=== PATIENT | male | born 1985 | race Caucasian/White ===

== ENCOUNTER 2021-01-26 13:32 | Inpatient (IN) ==
[~2021-01-26 13:32] MED LIST: cloNIDine TTS 2 1 PATCH PATCH TD SCH
[2021-01-26] MEDS ORDERED: 0.9 % SODIUM CHLORIDE 1,000 ML IV ONE (13:49)
[2021-01-26 14:29] LABS: Basophils # (Auto) 0.07 K/mcL (0.00-0.20); Basophils % (Auto) 0.9 % (0.0-2.0); Eosinophils # (Auto) 0.06 K/mcL (0.00-0.70); Eosinophils % (Auto) 0.8 % (0.0-7.0); Hematocrit 45.2 % (41.0-55.0); Hemoglobin 15.5 g/dL (13.5-16.5); Lymphocytes # (Auto) 1.69 K/mcL (1.50-4.80); Lymphocytes % (Auto) 22.1 % (15.0-49.0); Mean Cell Volume 100.9 fL (80.0-100.0); Mean Corpuscular HGB Conc 34.3 g/dL (31.0-36.0); Mean Platelet Volume 9.9 fL (7.4-10.4); Monocytes # (Auto) 0.66 K/mcL (0.10-0.90); Monocytes % (Auto) 8.6 % (1.0-12.0); Neutrophils % (Auto) 67.6 % (38.0-78.0); Platelet Count 154 K/mcL (140-440); RBC 4.48 M/mcL (4.50-5.90); Red Cell Distribution Width 11.9 % (11.5-14.5); WBC 7.7 K/mcL (4.5-11.0)
[2021-01-26] MEDS ORDERED: ONDANSETRON 4 MG/2 ML VIAL IV ONE (14:40)
[2021-01-26 14:49] LABS: ALT/SGPT 117 U/L (<40); AST/SGOT 117 U/L (<40); Albumin 4.8 gm/dL (3.2-5.2); Albumin/Globulin Ratio 1.3 (1.0-2.3); Alkaline Phosphatase 70 U/L (39-117); Bilirubin,Total 0.7 mg/dL (0.1-1.0); Blood Urea Nitrogen 10 mg/dL (6-20); Calcium 10.3 mg/dL (8.6-10.4); Carbon Dioxide 22 mmol/L (22-30); Chloride 98 mmol/L (96-108); Globulin 3.6 gm/dL (2.2-3.7); Glomerular Filtration Rate 110; Glucose 162 mg/dL (70-105)
[2021-01-26] MEDS ORDERED: LORazepam 2 MG/ML VIAL IV ONE (15:12)
[2021-01-26] MEDS ORDERED: FOLIC ACID 1 MG TABLET PO ONE (15:46)
[2021-01-26] MEDS ORDERED: THIAMINE 100 MG in 0.9 % SODIUM CHLORIDE 50 ML IV ONE (15:46)
--- NOTE | 2021-01-26 15:46 | Emergency Department Note ---
Seizure HPI General Chief Complaint: Seizure Stated Complaint: seizure Time Seen by Provider: 01/26/21 13:42 Source: patient and EMS Mode of arrival: ambulatory Limitations: no limitations History of Present Illness HPI Narrative: Narrative: 35 yo M w/ h/o alcohol abuse, previous seizure, p/w seizure like activity. Per fiance at the bedside, he was at home, and had been shaky all morning. He suddenly cried out and had a one minute episode of B/LUE rigidity/fine tremor, w/ eyes rolled back in his head. This was followed by 2-3 minutes of unresponsiveness. He was then transported here for ongoing evaluation. He currently denies BAUMAN, numbness, weakness, neck pain, F/C. He initially reported drinking only a small amount of alcohol. However, the RN d/w him and his fiance and learned that he is drinking 1/2 gallon of hard alcohol daily, and his last drink was two days ago. He was seen here after his first seizure, and was referred to neurology, but has not yet seen them. Related Data Home Medications Medication Instructions Recorded Confirmed No Known Home Meds 01/26/21 01/26/21 Allergies Allergy/AdvReac Type Severity Reaction Status Date / Time No Known Drug Allergies Allergy Verified 01/26/21 16:21 Review of Systems ROS ROS Narrative: Narrative: All systems ED: reviewed and negative except as stated. [facility] Narrative Patient History Narrative: Narrative: Medical/Surgical/Family History All Active Problems (Updated 01/26/21 @ 15:46 by Nelson Borjas MD) Clavicle fracture (Acute) Observed seizure-like activity (Acute) New onset seizure (Acute) Adverse drug reaction (Acute) Seizure (Acute) Alcohol withdrawal seizure (Acute) Paronychia of finger of right hand (Acute) Social History Smoking Status: Current every day smoker Alcohol Intake Frequency: holiday/special occasion only Substance Use: does not use Exam Narrative Narrative: Narrative: General Limitations: no limitations General appearance: Present alert and in no apparent distress Head Head: Present atraumatic and normocephalic Eye Eye: Present PERRL and EOMI ENT ENT: Present normal oropharynx, mucous membranes moist and other (no tongue laceration) Neck Neck: Present full ROM; Absent tenderness Chest Chest: Present normal inspection and symmetric chest wall rise Respiratory Respiratory: Present normal lung sounds bilaterally Cardiovascular Cardiovascular: Present regular rate, normal rhythm, +S1 and +S2 Adbominal Abdominal: Present soft and normal bowel sounds; Absent distention and tenderness Extremities Extremities: Absent pedal edema Neurological Neurological: Present alert, oriented X3 and other (fine constant B/LUE tremor. No aphasia, dysarthria, facial droop, tongue deviation, sensory/motor deficit. Intact finger-nose, visual sprague. NIHSS 0) Psychiatric Psychiatric: Present anxious Skin Skin: Present warm (WNL) and dry Course Vital Signs Vital signs: Vital Signs Temperature 98.2 F 01/26/21 13:33 Pulse Rate 115 H 01/26/21 13:33 Respiratory Rate 20 01/26/21 13:33 Blood Pressure 154/110 01/26/21 13:33 Pulse Oximetry (%) 93 01/26/21 13:33 Temperature 98.2 F 01/26/21 13:33 Pulse Rate 68 01/26/21 17:01 Respiratory Rate 10 L 01/26/21 17:16 Blood Pressure 138/95 01/26/21 17:16 Pulse Oximetry (%) 93 01/26/21 17:01 [facility] MDM Narrative Medical decision making narrative: Narrative: 35 yo M w/ h/o previous seizure and alcoholism p/w seizure activity at home. DDX - CVA/SAH, seizure, metabolic/electrolyte d/o, alcohol withdrawal Pt presented clinically stable, in NAD but w/ tremors and anxiety. He initially denied any significant ETOH intake, and I began a basic W/U for recurrent seizure w/ labs. I did not see evidence of any traumatic injury, and imaging was not indicated. With NFD on exam and no BAUMAN or other neuro Sx, CT was not indicated. CMP showed no serious metabolic/electrolyte d/o. In the course of working him up, he disclosed to the RN that his ETOH intake was much more than he admitted to me. Once the fiance arrived, he then admitted to drinking quite a substantial amount of ETOH daily. I then Tx'd w/ 2mg IV ativan w/ good effect and started him on CIWA along w/ some thiamine and folate. With ETOH W/D seizures the likely source of todays presentation, admission was clearly required and he was accepted by the hospitalist. Lab Data Result diagrams: 01/26/21 13:38 01/26/21 13:38 Labs: Lab Results 01/26/21 01/26/21 01/26/21 Range/Units 13:38 13:38 17:20 WBC 7.7 (4.5-11.0) K/mcL RBC 4.48 L (4.50-5.90) M/mcL Hgb 15.5 (13.5-16.5) g/dL Hct 45.2 (41.0-55.0) % MCV 100.9 H (80.0-100.0) fL MCH 34.6 H (26.0-34.0) pg MCHC 34.3 (31.0-36.0) g/dL RDW 11.9 (11.5-14.5) % Plt Count 154 (140-440) K/mcL MPV 9.9 (7.4-10.4) fL Neut % (Auto) 67.6 (38.0-78.0) % Lymph % (Auto) 22.1 (15.0-49.0) % [place] % (Auto) 8.6 (1.0-12.0) % Eos % (Auto) 0.8 (0.0-7.0) % Baso % (Auto) 0.9 (0.0-2.0) % Lymph # (Auto) 1.69 (1.50-4.80) K/mcL [place] # (Auto) 0.66 (0.10-0.90) K/mcL Eos # (Auto) 0.06 (0.00-0.70) K/mcL Baso # (Auto) 0.07 (0.00-0.20) K/mcL Absolute Neutrophils 5.17 (1.80-8.00) K/mcL Sodium 138 (133-145) mmol/L Potassium 4.2 (3.3-5.1) mmol/L Chloride 98 (96-108) mmol/L Carbon Dioxide 22 (22-30) mmol/L Anion Gap 18.0 H (8.0-16.0) BUN 10 (6-20) mg/dL Creatinine 0.9 (0.7-1.2) mg/dL GFR Calculation 110 Glucose 162 H (70-105) mg/dL Calcium 10.3 (8.6-10.4) mg/dL Total Bilirubin 0.7 (0.1-1.0) mg/dL AST 117 H (<40) U/L ALT 117 H (<40) U/L Alkaline Phosphatase 70 (39-117) U/L Total Protein 8.4 (5.9-8.4) gm/dL Albumin 4.8 (3.2-5.2) gm/dL Globulin 3.6 (2.2-3.7) gm/dL Albumin/Globulin Ratio 1.3 (1.0-2.3) Urine Color Yellow Urine Appearance Clear (Clear) Urine pH 9.0 (5.0-9.0) Ur Specific [place] 1.014 (1.000-1.035) Urine Protein 30 A (Negative) mg/dL Urine Glucose (UA) Negative (Negative) mg/dL Urine Ketones Negative (Negative) mg/dL Urine Occult Blood Negative (Negative) mg/dL Urine Nitrate Negative (Negative) Urine Bilirubin Negative (Negative) mg/dL Urine Urobilinogen Negative mg/dL Ur Leukocyte Esterase Negative (Negative) /ug Urine RBC < 1 (0-3) /hpf Urine WBC < 1 (0-4) /hpf Ur Squamous Epith Cells 0 (0-4) /hpf Urine Bacteria Few A (0) /hpf Hyaline Casts 4 H (0-2) /lph Urine Mucus Few A (None) /hpf Ur Culture Indicated? Yes Discharge Plan Patient/Caregiver Discharge Instructions Pt seen by FORM SETTER SUPERVISOR/PA only: No Clinical Impression: Seizure, Alcohol withdrawal seizure Patient Disposition: Xfer As Inpt ([facility]) Condition: Serious Discharge Date/Time: 01/26/21 18:30
--- NOTE | 2021-01-26 15:55 | Internal Med History&Physical ---
HPI History of Present Illness Patient information: Note initiated : 01/26/21 at 3:55 pm Service Date, if different from initiated Date: [] Patient: Pio Garrison a 35 y/o M admitted on for seizure. Chief Complaint: [] History of present illness: Mr. Garrison is a 35 year old M with no significant prior medical history except for a seizure a month ago. Patient presented to the ER following a brief seizure activity at home. During evaluation patient was noted to be consuming one fourth of half gallon of hard liquor daily. He has not had a drink in the last 48 hours. He intends to quit. He works in the [place] department at [employer]. He denies head trauma/fever, chills, unilateral weakness or vision changes. Denies yellow discoloration of skin/bloody emesis or bloody stool. Initial work-up was essentially unremarkable except for elevated LFTs. Patient was started on benzodiazepine. No further seizure episodes during the ER visit Hospitalist service was consulted for management of alcohol withdrawals At the time of my evaluation no family members are present. Most of the history is obtained from review of medical records/ER physician and patient self. He endorses to history as above. He denies fall/head injury/recent changes in medications. He expresses desire to quit alcohol Review of systems 10 point review system was performed and is negative except for ones discussed above PFSH PFSH All Active Problems (Updated 01/26/21 @ 15:46 by Nelson Borjas MD) Clavicle fracture (Acute) Observed seizure-like activity (Acute) New onset seizure (Acute) Adverse drug reaction (Acute) Seizure (Acute) Alcohol withdrawal seizure (Acute) Paronychia of finger of right hand (Acute) Social History (Updated 07/30/19 @ 05:49 by Jazmine Santamaria DO) alcohol intake frequency: holiday/special occasion only substance use type: does not use MEDS/ALLERGIES Home Medications and Allergies Home Medications Medication Instructions Recorded Confirmed Type No Known Home Meds 01/26/21 01/26/21 History Allergies Allergy/AdvReac Type Severity Reaction Status Date / Time No Known Drug Allergies Allergy Verified 01/26/21 16:21 EXAM Constitutional Vitals: Temp Pulse Resp BP Pulse Ox 98.2 F 66 13 154/106 94 01/26/21 13:33 01/26/21 15:16 01/26/21 15:16 01/26/21 15:16 01/26/21 15:16 Head normocephalic, nondistressed Oral cavity moist No ear or nose discharge Eye no subconjunctival pallor, movement symmetrical S1-S2 tachycardia Nonlabored breathing Nondistended nontender abdomen Lower extremity no cyanosis clubbing or joint swelling Skin no suspicious lesion Psych anxious and tremulous Neuro normal higher function on limited neuro exam DATA Data Completed and Pending Labs: Labs from last 24 hours 01/26/21 01/26/21 13:38 13:38 WBC 7.7 RBC 4.48 L Hgb 15.5 Hct 45.2 MCV 100.9 H MCH 34.6 H MCHC 34.3 RDW 11.9 Plt Count 154 MPV 9.9 Neut % (Auto) 67.6 Lymph % (Auto) 22.1 [place] % (Auto) 8.6 Eos % (Auto) 0.8 Baso % (Auto) 0.9 Lymph # (Auto) 1.69 [place] # (Auto) 0.66 Eos # (Auto) 0.06 Baso # (Auto) 0.07 Absolute Neutrophils 5.17 Sodium 138 Potassium 4.2 Chloride 98 Carbon Dioxide 22 Anion Gap 18.0 H BUN 10 Creatinine 0.9 GFR Calculation 110 Glucose 162 H Calcium 10.3 Total Bilirubin 0.7 AST 117 H ALT 117 H Alkaline Phosphatase 70 Total Protein 8.4 Albumin 4.8 Globulin 3.6 Albumin/Globulin Ratio 1.3 A/P Narrative A/P Narrative: * Alcohol withdrawal seizures, continue management per withdrawal protocol. Start gabapentin/clonidine benzodiazepine sparing protocol/crystalloid/antiemetics/electrolyte management and close monitoring for seizures in monitored unit. * severe alcohol use disorder, counseling/cessation measures * Prophylaxis early ambulation/Heparin Plan * Benzodiazepine sparing alcohol withdrawal protocol * Continue seizure watch * nutrition support/crystalloids electrolytes management Time Spent With Patient Time: Total time spent is greater than 50% in coordination of care (as documented) at patient's floor/unit and/or counseling patient:
[2021-01-26] MEDS ORDERED: THIAMINE 100 MG/ML VIAL ONE (15:58)
[2021-01-26 18:29] LABS: Appearance,Urine CLEAR (Clear); Bacteria,Urine FEW /hpf (0); Bilirubin,Urine Negative (Negative); Color,Urine YELLOW; Culture Indicated,Urine Yes; Glucose,Urine (UA) Negative (Negative); Ketones,Urine Negative (Negative); Leukocyte Esterase,Urine Negative /ug (Negative); Mucus,Urine FEW /hpf; Nitrate,Urine Negative (Negative); Protein,Urine 30 mg/dL (Negative); Specific Gravity,Urine 1.014 (1.000-1.035); Urine Blood Negative (Negative); Urine Hyaline Cast 4 /lph (0-2); Urine RBC < 1 /hpf (0-3); Urine Squamous Epithelial Cell 0 /hpf (0-4); Urine WBC < 1 /hpf (0-4); Urobilinogen,Urine Negative
[2021-01-26] MEDS ORDERED: POTASSIUM CHLORIDE 40 MEQ in DEXTROSE 5% IN WATER 500 ML IV PRN (18:38)
[2021-01-26] MEDS ORDERED: ACETAMINOPHEN 650 MG/65 ML BAG IV PRN (18:38)
[2021-01-26] MEDS ORDERED: ONDANSETRON 4 MG ODT TABLET SL PRN (18:38)
[2021-01-26] MEDS ORDERED: ACETAMINOPHEN 325 MG TABLET PO PRN (18:38)
[2021-01-26] MEDS ORDERED: MAGNESIUM SULFATE 2 GM/50 ML BAG IV PRN (18:38)
[2021-01-26] MEDS ORDERED: BISACODYL 10 MG SUPP.RECT PR PRN (18:38)
[2021-01-26] MEDS ORDERED: MELATONIN 3 MG TABLET PO PRN (18:38)
[2021-01-26] MEDS ORDERED: POTASSIUM CHLORIDE 20 MEQ PACKET PO PRN (18:38)
[2021-01-26] MEDS: 0.9 % SODIUM CHLORIDE 10 ML SYRINGE IV SCH ×2 (18:50→22:38)
[2021-01-26] MEDS: LACTATED RINGERS 1,000 ML IV SCH (18:51)
[2021-01-26] MEDS ORDERED: GABAPENTIN 400 MG CAPSULE PO ONE (19:15)
[2021-01-26] MEDS: ONDANSETRON 4 MG/2 ML VIAL IV PRN (19:33)
[2021-01-26] MEDS: cloNIDine HCL 0.1 MG TABLET PO SCH (19:37)
[2021-01-26] MEDS: HEPARIN 5,000 UNIT/ML VIAL SQ SCH (19:46)
[2021-01-26] MEDS: CYANOCOBALAMIN (VITAMIN B-12) 500 MCG TABLET PO SCH (19:46)
[2021-01-26] MEDS: DOCUSATE SODIUM 100 MG CAPSULE PO SCH (19:47)
[2021-01-26] MEDS ORDERED: SENNOSIDES/DOCUSATE SODIUM 1 TAB TABLET PO SCH (21:00)
[2021-01-27] MEDS: cloNIDine HCL 0.1 MG TABLET PO SCH ×2 (04:30→13:13)
[2021-01-27] MEDS: ONDANSETRON 4 MG/2 ML VIAL IV PRN (04:33)
[2021-01-27] MEDS ORDERED: GABAPENTIN 400 MG CAPSULE PO SCH ×2 (06:00→14:00)
[2021-01-27] MEDS: 0.9 % SODIUM CHLORIDE 10 ML SYRINGE IV SCH ×3 (06:01→21:07)
[2021-01-27 07:23] LABS: Basophils # (Auto) 0.05 K/mcL (0.00-0.20); Basophils % (Auto) 1.2 % (0.0-2.0); Eosinophils # (Auto) 0.11 K/mcL (0.00-0.70); Eosinophils % (Auto) 2.6 % (0.0-7.0); Hematocrit 41.8 % (41.0-55.0); Hemoglobin 13.7 g/dL (13.5-16.5); Lymphocytes # (Auto) 1.61 K/mcL (1.50-4.80); Lymphocytes % (Auto) 37.4 % (15.0-49.0); Mean Cell Volume 101.2 fL (80.0-100.0); Mean Corpuscular HGB Conc 32.8 g/dL (31.0-36.0); Mean Platelet Volume 10.3 fL (7.4-10.4); Monocytes # (Auto) 0.41 K/mcL (0.10-0.90); Monocytes % (Auto) 9.5 % (1.0-12.0); Neutrophils % (Auto) 49.3 % (38.0-78.0); Platelet Count 129 K/mcL (140-440); RBC 4.13 M/mcL (4.50-5.90); Red Cell Distribution Width 11.9 % (11.5-14.5); WBC 4.3 K/mcL (4.5-11.0)
[2021-01-27 08:06] LABS: ALT/SGPT 91 U/L (<40); AST/SGOT 83 U/L (<40); Albumin 4.2 gm/dL (3.2-5.2); Albumin/Globulin Ratio 1.4 (1.0-2.3); Alkaline Phosphatase 60 U/L (39-117); Bilirubin,Direct 0.2 mg/dL (<0.3); Bilirubin,Total 0.9 mg/dL (0.1-1.0); Blood Urea Nitrogen 10 mg/dL (6-20); Carbon Dioxide 25 mmol/L (22-30); Chloride 98 mmol/L (96-108); Glomerular Filtration Rate 122; Glucose 80 mg/dL (70-105); Lactate Dehydrogenase 193 U/L (135-225); Phosphorous 3.2 mg/dL (2.5-4.5); Triglycerides 159 mg/dL (<150); Uric Acid 5.7 mg/dL (2.5-8.0)
[2021-01-27] MEDS: DOCUSATE SODIUM 100 MG CAPSULE PO SCH ×2 (08:31→21:06)
[2021-01-27] MEDS: LACTATED RINGERS 1,000 ML IV SCH (08:31)
[2021-01-27] MEDS: HEPARIN 5,000 UNIT/ML VIAL SQ SCH (08:32)
[2021-01-27] MEDS: CYANOCOBALAMIN (VITAMIN B-12) 500 MCG TABLET PO SCH ×2 (08:32→21:07)
[2021-01-27] MEDS ORDERED: MULTIVIT,THER IRON,CA,FA & MIN 1 TABLET PO SCH (09:00)
--- NOTE | 2021-01-27 10:22 | Internal Med Progress Note ---
SUBJECTIVE Subjective Patient information: Note initiated : 01/27/21 at 10:21 am Service Date, if different from initiated Date: [] Patient: Pio Garrison a 35 y/o M admitted on 01/26/21 for seizure. Chief Complaint: [] Interval history: Mr. Garrison is a 35 year old M with no significant prior medical history except for a seizure a month ago. Patient presented to the ER following a brief seizure activity at home. During evaluation patient was noted to be consuming one fourth of half gallon of hard liquor daily. He has not had a drink in the last 48 hours. He intends to quit. He works in the [employer] department at [employer]. He denies head trauma/fever, chills, unilateral weakness or vision changes. Denies yellow discoloration of skin/bloody emesis or bloody stool. Initial work-up was essentially unremarkable except for elevated LFTs. Patient was started on benzodiazepine. No further seizure episodes during the ER visit Hospitalist service was consulted for management of alcohol withdrawals At the time of my evaluation no family members are present. Most of the history is obtained from review of medical records/ER physician and patient self. He endorses to history as above. He denies fall/head injury/recent changes in medications. He expresses desire to quit alcohol 01/27-patient doing a lot better. No overnight seizure activity. No significant psychomotor agitation/diaphoresis. CIWA scores less than eight. Tolerating medications per benzodiazepine sparing protocol. Stable labs electrolytes. Tolerating diet. Ambulating. Transfer to medical floor. MRI brain today. Anticipate discharge in 48 to 72 hours once clinically stable. Taper gabapentin dose. Constitutional Vitals: Vital Signs Temp Pulse Resp BP Pulse Ox 97.7 F 46 L 16 119/74 97 01/27/21 08:00 01/27/21 10:08 01/27/21 10:00 01/27/21 10:00 01/27/21 10:08 Period Temp Pulse Resp BP Sys/Schumacher Pulse Ox Last 24 Hr 97.7 F-98.8 F 46-115 10 115-155/74-115 90-100 Intake and Output 01/26/21 01/27/21 01/27/21 21:59 05:59 13:59 Intake Total 1265 753 2289 Output Total 125 150 0 Balance 3695 074 3023 Weight 74.208 kg Alert oriented Nonlabored breathing Minimal anxiety and tremor No telemetry events Intake & Output: Intake & Output 01/26/21 01/27/21 01/27/21 21:59 05:59 13:59 Intake Total 1072 504 7800 Output Total 125 150 0 Balance 7804 658 3919 Weight 74.208 kg Intake: IV 1051 1070 Sodium Chloride 0.9% 1,000 ml @ 1000 Wide Open IV BOLUS ONE Rx#: [id number] Lactated Ringers 1,000 ml @ 75 1070 mls/hr IV .[id number] [facility] Rx#: [id number] Vitamin B1 100 mg In Sodium 51 Chloride 0.9% 50 ml @ 50 mls/hr IV ONCE ONE Rx#:[id number] Oral 480 480 360 Output: Void Amount 125 150 0 Other: Meal Snack Percent of Meal Consumed 100% Feeding Ability Independent Urine Appearance Clear Clear Urine Color Dark Susy Dark Susy Urine Odor Normal Normal OBJ DATA Labs CBC & Chem 7: 01/27/21 04:35 01/27/21 04:35 Labs: Abnormal Lab Results 01/27/21 01/27/21 01/26/21 04:35 04:35 17:20 WBC 4.3 L RBC 4.13 L MCV 101.2 H MCH Plt Count 129 L Anion Gap Glucose GGT 399 H AST 83 H ALT 91 H Triglycerides 159 H Urine Protein 30 A Urine Bacteria Few A Hyaline Casts 4 H Urine Mucus Few A 01/26/21 01/26/21 13:38 13:38 WBC RBC 4.48 L MCV 100.9 H MCH 34.6 H Plt Count Anion Gap 18.0 H Glucose 162 H GGT AST 117 H ALT 117 H Triglycerides Urine Protein Urine Bacteria Hyaline Casts Urine Mucus Meds: Medications Acetaminophen (Acetaminophen 325 Mg Tablet) 650 mg PO Q4-6HP PRN; Protocol PRN Reason: Per Pain Protocol/Fever > 101 Bisacodyl (Bisacodyl 10 Mg Supp.Rect) 10 mg NV Q2-3DAYS PRN PRN Reason: Constipation Clonidine HCl (Clonidine Tts 2 1 Patch Patch) 1 patch TD Tu@1000 [facility] Last Admin: 01/26/21 19:47 Dose: 1 patch Documented by: Clonidine HCl (Clonidine Hcl 0.1 Mg Tablet) 0.2 mg PO Q8H [facility] Stop: 01/27/21 12:01 Last Admin: 01/27/21 04:30 Dose: 0.2 mg Documented by: Cyanocobalamin (Cyanocobalamin (Vitamin B-12) 500 Mcg Tablet) 1,000 mcg PO BID [facility] Stop: 01/31/21 09:01 Last Admin: 01/27/21 08:32 Dose: 1,000 mcg Documented by: Docusate Sodium (Docusate Sodium 100 Mg Capsule) 100 mg PO BID [facility] Last Admin: 01/27/21 08:31 Dose: Not Given Documented by: Gabapentin (Gabapentin 400 Mg Capsule) 800 mg PO Q8 [facility] Stop: 01/27/21 22:01 Last Admin: 01/27/21 06:05 Dose: 800 mg Documented by: Potassium Chloride 40 meq/ (Dextrose) 520 mls @ 130 mls/hr IV UD PRN PRN Reason: K+ = or < 3.5 Acetaminophen (Ofirmev) 650 mg in 65 mls @ 130 mls/hr IV Q6HP PRN; Protocol PRN Reason: Per Pain Protocol/Fever > 101 Magnesium Sulfate (Magnesium Sulfate) 2 gm in 50 mls @ 50 mls/hr IV UD PRN PRN Reason: MG = or < 1.7 Iron Carb/Multivit/Vici/Folic Acid (Multivit,Ther Iron,Ca,Fa & Min 1 Tablet) 1 tab PO DAILY [facility] Last Admin: 01/27/21 08:32 Dose: 1 tab Documented by: Melatonin (Melatonin 3 Mg Tablet) 3 mg PO HSP PRN PRN Reason: Insomnia Ondansetron HCl (Ondansetron 4 Mg Odt Tablet) 4 mg SL Q4-6HP PRN; Protocol PRN Reason: Nausea And Vomiting Ondansetron HCl (Ondansetron 4 Mg/2 Ml Vial) 4 mg IV Q4-6HP PRN; Protocol PRN Reason: Nausea And Vomiting Last Admin: 01/27/21 04:33 Dose: 4 mg Documented by: Potassium Chloride (Potassium Chloride 20 Meq Packet) 40 meq PO DAILYP PRN PRN Reason: K+ < 3.5 Senna/Docusate Sodium (Sennosides/Docusate Sodium 1 Tab Tablet) 1 tab PO HS [facility] Last Admin: 01/26/21 19:47 Dose: Not Given Documented by: Sodium Chloride (0.9 % Sodium Chloride 10 Ml Syringe) 10 ml IV Q8 [facility] Last Admin: 01/27/21 06:01 Dose: Not Given Documented by: A/P Narrative A/P Narrative: * Alcohol withdrawal seizures, clinically improved on gabapentin. No evidence of DT or psychomotor agitation. Ongoing withdrawal symptom management on gabapentin/clonidine. * severe alcohol use disorder, counseling/cessation measures. * Prophylaxis early ambulation Plan * Continue benzodiazepine sparing alcohol withdrawal protocol * Transfer to medical floor * nutrition support/crystalloids electrolytes management Time Spent With Patient Time: Total time spent is greater than 50% in coordination of care (as documented) at patient's floor/unit and/or counseling patient: QUALITY Stroke Symptom Onset Unknown: No VTE Deep Vein Thrombosis/Pulmonary Embolism Present on Admission: No
[2021-01-27] MEDS ORDERED: BISACODYL 10 MG SUPP.RECT PR PRN (10:54)
[2021-01-27] MEDS ORDERED: MAGNESIUM SULFATE 2 GM/50 ML BAG IV PRN (10:54)
[2021-01-27] MEDS ORDERED: POTASSIUM CHLORIDE 20 MEQ PACKET PO PRN (10:54)
[2021-01-27] MEDS ORDERED: MELATONIN 3 MG TABLET PO PRN (10:54)
[2021-01-27] MEDS ORDERED: ACETAMINOPHEN 650 MG/65 ML BAG IV PRN (10:54)
[2021-01-27] MEDS ORDERED: ACETAMINOPHEN 325 MG TABLET PO PRN (10:54)
[2021-01-27] MEDS ORDERED: ONDANSETRON 4 MG/2 ML VIAL IV PRN (10:54)
[2021-01-27] MEDS ORDERED: ONDANSETRON 4 MG ODT TABLET SL PRN (10:54)
[2021-01-27] MEDS ORDERED: POTASSIUM CHLORIDE 40 MEQ in DEXTROSE 5% IN WATER 500 ML IV PRN (10:54)
[2021-01-27] MEDS ORDERED: cloNIDine HCL 0.1 MG TABLET PO SCH (12:00)
[2021-01-27] MEDS ORDERED: GADOBENATE DIMEGLUMINE 15 ML/VIAL IV ONE (14:23)
[2021-01-27] MEDS: GABAPENTIN 300 MG CAPSULE PO SCH ×2 (14:52→21:07)
--- NOTE | 2021-01-27 18:25 | Magnetic Resonance Report ---
CLINICAL INFORMATION: Follow-up alcohol withdrawal seizures. COMPARISON: None. TECHNIQUE: Sagittal T1 FLAIR, axial diffusion ADC, T1 FLAIR, T2 FLAIR propeller, T2 propeller gradient, T1 post Magnevist and coronal T1 FLAIR post Magnevist images were acquired. FINDINGS: The ventricles, sulci, fissures and cisterns are normal and symmetric in size and configuration-no extra-axial fluid collection or mass appreciated. A 4 mm high signal lesion in the deep left frontal white matter represents a focus of chronic ischemia. The remainder of the nguyen and white matter the cerebrum, brainstem and cerebellum show normal signal-no abnormal enhancement or restricted diffusion. Signal void in intracerebral arteries, extra-axial cranial nerves, pituitary orbits are all normal. IMPRESSION: 4 mm of chronic ischemia in the deep left frontal white matter. Exam is, otherwise, normal Interpreted and Authenticated by: Ford Mahan 01/27/21
[2021-01-27] MEDS ORDERED: SENNOSIDES/DOCUSATE SODIUM 1 TAB TABLET PO SCH (21:00)
[2021-01-28] MEDS: GABAPENTIN 300 MG CAPSULE PO SCH (05:12)
[2021-01-28] MEDS: 0.9 % SODIUM CHLORIDE 10 ML SYRINGE IV SCH (05:12)
[2021-01-28 06:45] LABS: Basophils # (Auto) 0.04 K/mcL (0.00-0.20); Basophils % (Auto) 0.7 % (0.0-2.0); Eosinophils # (Auto) 0.15 K/mcL (0.00-0.70); Eosinophils % (Auto) 2.4 % (0.0-7.0); Hematocrit 41.4 % (41.0-55.0); Hemoglobin 14.1 g/dL (13.5-16.5); Lymphocytes # (Auto) 1.92 K/mcL (1.50-4.80); Lymphocytes % (Auto) 31.3 % (15.0-49.0); Mean Cell Volume 100.5 fL (80.0-100.0); Mean Corpuscular HGB Conc 34.1 g/dL (31.0-36.0); Mean Platelet Volume 10.8 fL (7.4-10.4); Monocytes % (Auto) 6.5 % (1.0-12.0); Neutrophils % (Auto) 59.1 % (38.0-78.0); Platelet Count 118 K/mcL (140-440); RBC 4.12 M/mcL (4.50-5.90); Red Cell Distribution Width 11.6 % (11.5-14.5); WBC 6.1 K/mcL (4.5-11.0)
--- NOTE | 2021-01-28 06:48 | XRay Report ---
CLINICAL INFORMATION: Interval Change COMPARISON: 11/28/2020 FINDINGS: Heart size, mediastinum and pulmonary vessels are normal. The lungs are clear. No effusions. Right midclavicular fracture transfixed by plate and screws is now anatomic alignment. IMPRESSION: No acute cardiac pulmonary disease Interpreted and Authenticated by: Ford Mahan 01/28/21
[2021-01-28 07:01] LABS: ALT/SGPT 99 U/L (<40); AST/SGOT 79 U/L (<40); Albumin 4.4 gm/dL (3.2-5.2); Albumin/Globulin Ratio 1.5 (1.0-2.3); Alkaline Phosphatase 64 U/L (39-117); Bilirubin,Direct 0.3 mg/dL (<0.3); Bilirubin,Total 0.9 mg/dL (0.1-1.0); Blood Urea Nitrogen 10 mg/dL (6-20); Calcium 9.2 mg/dL (8.6-10.4); Carbon Dioxide 25 mmol/L (22-30); Chloride 99 mmol/L (96-108); Glomerular Filtration Rate 122; Glucose 90 mg/dL (70-105); Lactate Dehydrogenase 205 U/L (135-225); Phosphorous 3.3 mg/dL (2.5-4.5); Triglycerides 100 mg/dL (<150); Uric Acid 4.6 mg/dL (2.5-8.0)
[2021-01-28] MEDS: CYANOCOBALAMIN (VITAMIN B-12) 500 MCG TABLET PO SCH (07:57)
[2021-01-28] MEDS: DOCUSATE SODIUM 100 MG CAPSULE PO SCH (07:57)
[2021-01-28] MEDS ORDERED: MULTIVIT,THER IRON,CA,FA & MIN 1 TABLET PO SCH (09:00)
--- NOTE | 2021-01-28 09:53 | Discharge Summary ---
Discharge Provider Provider Patient information: Note initiated : 01/28/21 at 9:51 am Service Date, if different from initiated Date: [] Patient: Pio Garrison a 35 y/o M admitted on 01/26/21 for seizure. Chief Complaint: [] Discharge diagnosis * Alcohol withdrawal seizures, clinically improved on gabapentin. No evidence of DT or psychomotor agitation. MRI brain no evidence of epileptogenic focus/tumors. * severe alcohol use disorder, counseling/cessation measures. Continue gabapentin/clonidine for additional 4-5 days Brief hospital course Mr. Garrison is a 35 year old M with no significant prior medical history except for a seizure a month ago. Patient presented to the ER following a brief seizure activity at home. During evaluation patient was noted to be consuming one fourth of half gallon of hard liquor daily. He has not had a drink in the last 48 hours. He intends to quit. 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 He denies head trauma/fever, chills, unilateral weakness or vision changes. Denies yellow discoloration of skin/bloody emesis or bloody stool. Initial work-up was essentially unremarkable except for elevated LFTs. Patient was started on benzodiazepine. No further seizure episodes during the ER visit Hospitalist service was consulted for management of alcohol withdrawals At the time of my evaluation no family members are present. Most of the history is obtained from review of medical records/ER physician and patient self. He endorses to history as above. He denies fall/head injury/recent changes in medications. He expresses desire to quit alcohol 01/27-patient doing a lot better. No overnight seizure activity. No significant psychomotor agitation/diaphoresis. CIWA scores less than eight. Tolerating medications per benzodiazepine sparing protocol. Stable labs electrolytes. Tolerating diet. Ambulating. Transfer to medical floor. MRI brain today. Anticipate discharge in 48 to 72 hours once clinically stable. Taper gabapentin dose. 01/28-patient doing a lot better. Much improved agitation. CIWA score less than 5. Discharging on gabapentin 400 3 times daily with a tapering dose along with clonidine patch to continue for additional 5 days. Advised to refrain from alc ohol use. Return to ER if worsening fever chills. Follow-up with Dr. Benites as outpatient for alcohol rehab resources on labs Date of admission: 01/26/21 18:26 Discharge date: 01/28/21 Primary care physician: PCP No Consults: 01/26/21 Consult to Physician [CONS] Stat Comment: Consulting Provider: Shakir Peralta Reason For Exam: Physician to Consult Discharge Meds Discharge Medications Home Medications clonidine 1 patch TRANSDERMAL Tu@1000 7 Days #1 ea 01/28/21 [Rx Last Taken Unknown] gabapentin 300 mg PO Q8 #9 cap 01/28/21 [Rx Last Taken Unknown] COURSE Hospital Course Hospital course: . Discharge diagnosis: . Time Spent with Patient Time attestation: Total time spent providing and/or coordinating discharge services: EXAM Constitutional Vitals: Temp Pulse Resp BP Pulse Ox 96.4 F L 51 L 16 126/82 98 01/28/21 08:00 01/28/21 08:00 01/28/21 08:00 01/28/21 08:00 01/28/21 08:00 Discharge Data Data Completed and Pending Labs on day of discharge: Labs from last 24 hours 01/28/21 01/28/21 04:45 04:45 WBC 6.1 RBC 4.12 L Hgb 14.1 Hct 41.4 MCV 100.5 H MCH 34.2 H MCHC 34.1 RDW 11.6 Plt Count 118 L MPV 10.8 H Neut % (Auto) 59.1 Lymph % (Auto) 31.3 [place] % (Auto) 6.5 Eos % (Auto) 2.4 Baso % (Auto) 0.7 Lymph # (Auto) 1.92 [place] # (Auto) 0.40 Eos # (Auto) 0.15 Baso # (Auto) 0.04 Absolute Neutrophils 3.62 Sodium 134 Potassium 4.3 Chloride 99 Carbon Dioxide 25 Anion Gap 10.0 BUN 10 Creatinine 0.7 GFR Calculation 122 Glucose 90 Uric Acid 4.6 Calcium 9.2 Phosphorus 3.3 Magnesium 2.4 Total Bilirubin 0.9 Direct Bilirubin 0.3 H GGT 412 H AST 79 H ALT 99 H Alkaline Phosphatase 64 Lactate Dehydrogenase 205 Total Protein 7.4 Albumin 4.4 Globulin 3.0 Albumin/Globulin Ratio 1.5 Triglycerides 100 Preliminary micro results at discharge 01/26/21 17:20 Urine Culture - Preliminary Urine - Clean Void Mid-Stream Discharge Plan Patient/Caregiver Discharge Instructions Activity: increase activity as tolerated Diet: Regular Diet Instructions: Alcohol Withdrawal (DC) Prescriptions: New clonidine 0.1 mg/24 hr patch weekly 1 patch transdermal Tu@1000 7 Days Qty: 1 RF: 0 gabapentin 300 mg Capsule 300 mg PO Q8 Qty: 9 RF: 0 Follow Up Plan Follow up with: Amy Hallman DO [Physician] - (Call office on Monday to schedule appointment.) No,PCP [Primary Care Provider] - Patient Disposition: Home, Self-Care Prognosis: Serious Rehab Potential: Good I certify that the patient requires SNF services: No Overall status at discharge: patient is progressing back to baseline Discharge Orders: Discharge Order (Routine); Ordered 01/28/21 Ordered By: Shakir FONTANA VTE Deep Vein Thrombosis/Pulmonary Embolism Present on Admission: No
[2021-02-02] MEDS ORDERED: cloNIDine TTS 2 1 PATCH PATCH TD SCH (10:00)
== END 2021-01-28 10:22 | disposition home or self-care (01) | DRG 101 ==
LOC: ED 13:32 → ICU 18:26
PROVIDERS: ADMIT Internal Medicine; ATTEND Internal Medicine